=== PATIENT | male | born 1995 | race Caucasian/White ===

== ENCOUNTER 2017-05-11 21:22 | Emergency (ER) | payer OTHER ==
[~2017-05-11] VITALS: Ht 188 cm; Wt 77.1 kg
[2017-05-11 21:29] VITALS: BP 143/75
[2017-05-11 22:00] VITALS: BP 143/75
[2017-05-11] MEDS ORDERED: traMADol 50 MG TAB PO ONE (22:40)
== END 2017-05-11 23:00 | disposition home or self-care (01) ==
LOC: MED 21:22
DX: S76.011A Strain of muscle, fascia and tendon of right hip, initial encounter (principal); S39.012A Strain of muscle, fascia and tendon of lower back, initial encounter; R03.0 Elevated blood-pressure reading, without diagnosis of hypertension; V49.59XA Passenger injured in collision with other motor vehicles in traffic accident, initial encounter; Y93.89 Activity, other specified; Y92.488 Other paved roadways as the place of occurrence of the external cause; Y99.8 Other external cause status
CPT/HCPCS: 72100; 72170; 99284